=== PATIENT | female | born 1990 | race Caucasian/White ===

== ENCOUNTER 2020-05-03 10:33 | Inpatient (IN) ==
[2020-05-03] MEDS ORDERED: OXYTOCIN/0.9 % SODIUM CHLORIDE 30 UNITS/500 ML BAG IV ONE ×2 (10:55→15:59)
[2020-05-03] MEDS ORDERED: LIDOCAINE HCL 50 ML VIAL ONE (10:55)
[2020-05-03] MEDS ORDERED: LIDOCAINE HCL 50 ML VIAL PERI PRN (10:55)
[2020-05-03] MEDS ORDERED: ONDANSETRON 4 MG TAB.RAPDIS PO PRN (10:55)
[2020-05-03] MEDS: RINGER'S SOLUTION,LACTATED 1,000 ML IV ONE ×2 (11:15→12:04)
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
[2020-05-03] MEDS ORDERED: ONDANSETRON HCL/PF 2 MG/ML VIAL IV PRN (11:37)
[2020-05-03] MEDS ORDERED: BUPIVACAINE HCL/0.9 % NACL/PF 250 ML EP PRN (11:37)
[2020-05-03] MEDS ORDERED: NALOXONE HCL 1 MG/1 ML SYRG IV PRN (11:37)
[2020-05-03 11:40] LABS: Cocaine Ur Negative (NEGATIVE); Urine Barbiturate Negative (NEGATIVE); Urine Benzodiazepines Negative (NEGATIVE); Urine Opiates Negative (NEGATIVE); Urine PCP Negative (NEGATIVE)
[2020-05-03 11:41] LABS: Urine THC Positive (NEGATIVE)
[2020-05-03] MEDS ORDERED: fentaNYL CITRATE/PF 50 MCG/ML AMPUL IT SCH (11:45)
--- NOTE | 2020-05-03 12:17 | PN ---
Progess Note - Interim Date: 05/03/20 Time: 12:14 Narrative: 05/03/20 12:14 Patient desires epidural Vital signs stable. FHT: 130 baseline, good cjqg-[id number] variability 1 prolonged deceleration. Contractions q 2-3 min Cervix: 5-6/90/0, AROM at 1117-clear fluid, FSE placed Impression: Intrauterine at 38 3/7 weeks in labor Plan: Continue present plan. Anesthesia consulted for epidural placement.
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
--- NOTE | 2020-05-03 12:18 | ANES ---
Post Anesthesia Assessment - Vital Signs Vitals: Last Vital Signs Temp 36.7 C 05/03/20 11:08 Pulse 96 05/03/20 11:08 Resp 18 05/03/20 11:08 BP 137/86 05/03/20 11:08 Pulse Ox 100 05/03/20 11:08 Airway Patency: Normal - Mental Status Level Of Consciousness: Awake - Pain Level Pain Score: 2 - N/V Assessment Nausea/Vomiting Presence: None Dehydration:: No
--- NOTE | 2020-05-03 12:18 | ANES ---
Post Anesthesia Discharge - Transfer of Care Transfer of Care handoff given to nurse: Yes - Anesthesia Post Op Note Anesthesia Post Op Note: Care transferred to OB RN
--- NOTE | 2020-05-03 12:19 | ANES ---
Anesthesia Procedure Note Procedure Note: ANESTHESIA PROCEDURE NOTE Date of Procedure: 05/03/2020 Time of procedure: 1205. Performed by: Wan Benites CRNA Belt Maker Helper: None. Preprocedure diagnosis: Active labor. Post procedure diagnosis: Same. Procedure: Insertion of labor epidural. Indications: The patient is a 29-year-old prima para female in active labor requesting labor epidural for pain management. Findings: See below. Details of the procedure: The patient was placed in a sitting position. Back was prepped with DuraPrep. Patient was then draped in a sterile fashion. Lidocaine 1% was infiltrated to the skin and subcutaneous tissues at the level of the L3 4 interspace. The epidural space was identified using a 18-gauge Tuohy needle with czyt-et-[id number] technique. 20 mcg fentanyl was given intrathecally using a 27 ga. spinal needle. Epidural catheter was inserted without difficulty. Negative test dose was elicited using 5 mL of 1.5% preservative-free lidocaine plus epinephrine 1 200,000. The epidural catheter was then taped and secured in place. EBL: Minimal. Fluids: N/A. Specimen: N/A. Post procedure condition: The patient tolerated the procedure well. No complications were noted. Thank you for this consultation. Del Toro CRNA
--- NOTE | 2020-05-03 15:57 | OR ---
Operative Report - Dictated Report Narrative: Spontaneous vaginal delivery of vigorously crying viable female at 1524 on 05/03/2020 with Apgars 9 and 9, weighing 2604 g in JS position with tight nuchal cord x1. Cord clamping delayed approximately 1 minute Placenta delivered complete, intact, with three vessel cord Estimated blood loss: 100 mL Anesthesia: Epidural Lacerations: Bilateral periurethral abrasions no repair needed. History for MU History for Definition: * The number of deliveries resulting in a live the patient experienced prior to current hospitalization * The previous delivery of live twins or any live multiple gestation is considered one live event. *If primagravida or nulliparous is documented select zero for the number of previous live births. Live Events: Live Events: 0
[2020-05-03] MEDS ORDERED: SENNOSIDES 8.6 MG TABLET PO PRN (15:59)
[2020-05-03] MEDS ORDERED: BISACODYL 10 MG SUPP.RECT RC PRN (15:59)
[2020-05-03] MEDS ORDERED: BENZOCAINE/MENTHOL 81 SPRAY CAN TP PRN (15:59)
[2020-05-03] MEDS ORDERED: ACETAMINOPHEN 325 MG TABLET PO PRN (15:59)
[2020-05-03] MEDS ORDERED: HYDROCORTISONE 30 APPL TUBE TP PRN (15:59)
[2020-05-03] MEDS ORDERED: NON-FORMULARY 1 DOSE DOSE (Breast Pump device) TP SCH (16:00)
[2020-05-03] MEDS: GLYCERIN/WITCH HAZEL LEAF 40 APPL BOX TP PRN (17:25)
[2020-05-03] MEDS: oxyCODONE HCL/ACETAMINOPHEN 1 TAB TABLET PO PRN ×2 (19:15→23:22)
[2020-05-03] MEDS: DOCUSATE SODIUM 100 MG CAPSULE PO SCH (21:27)
[2020-05-04] MEDS: oxyCODONE HCL/ACETAMINOPHEN 1 TAB TABLET PO PRN ×5 (02:43→22:30)
[2020-05-04] MEDS: DOCUSATE SODIUM 100 MG CAPSULE PO SCH ×3 (07:48→20:59)
[2020-05-04] MEDS: MULTIVITAMIN/IRON/FOLIC ACID 1 TAB TABLET PO SCH ×2 (07:49→08:14)
[2020-05-04] MEDS: IBUPROFEN 800 MG TABLET PO PRN ×2 (12:24→18:46)
--- NOTE | 2020-05-04 14:54 | PN ---
Subjective - Date and Time Seen Date: 05/04/20 Time: 14:15 Objective - Vitals Vitals: Last Vital Signs Temp 36.8 C 05/04/20 14:30 Pulse 62 05/04/20 14:30 Resp 18 05/04/20 14:30 BP 120/76 05/04/20 14:30 Pulse Ox 100 05/04/20 14:30 Patient denies complaints. She was pretty upset last night when told she could not go out to smoke, but seems to be okay now. Lochia wnl abdomen - soft, nontender Uterus -firm, at umbilicus - 1 No calf tenderness Impression: day #1 - s/p spontaneous vaginal delivery. Urine drug screen positive for THC. Baby's drug screen positive as well. The baby has an elevated CRP and on antibiotics awaiting blood cultures. Plan: Continue routine care. Anticipate mother will need to "board for baby" till baby'a blood cultures are back. Cauti Physician Documentation - Urinary Catheter Management Urethral (Kelley) Date of Insertion: 05/03/20 Time of Insertion: 12:37 Date of Removal: 05/03/20 Time of Removal: 15:00 Assessment/Plan - Problems/Diagnosis (1) Labor established Problem: Acute (2) Current smoker Problem: Chronic (3) Depression Problem: Inactive Qualifiers: Depression Type: unspecified Qualified Code(s): F32.9 - Major depressive disorder, single episode, unspecified (4) Anxiety Problem: Inactive (5) Marijuana use Problem: Inactive
--- NOTE | 2020-05-04 15:03 | PN ---
Progess Note - Interim Date: 05/04/20 Time: 15:00 Narrative: 05/04/20 15:00 Patient had an elevated temperature of 41.1 C 1 hour after delivery. Her blood pressure and pulse were also elevated at this time. Within 1 hour all vitals were back to within normal limits. Patient has not had an elevated temperature since that time. The supervisor post wave and infectious disease nurse were contacted. A Covid test was performed and results were negative. We will continue to monitor patient closely for signs/symptoms of infection.
[2020-05-05] MEDS: MULTIVITAMIN/IRON/FOLIC ACID 1 TAB TABLET PO SCH ×2 (07:43→08:03)
[2020-05-05] MEDS: GLYCERIN/WITCH HAZEL LEAF 40 APPL BOX TP PRN (07:43)
[2020-05-05] MEDS: DOCUSATE SODIUM 100 MG CAPSULE PO SCH ×3 (07:43→20:54)
[2020-05-05] MEDS: IBUPROFEN 800 MG TABLET PO PRN ×3 (07:43→23:53)
[2020-05-05] MEDS: oxyCODONE HCL/ACETAMINOPHEN 1 TAB TABLET PO PRN ×4 (07:43→23:53)
--- NOTE | 2020-05-05 09:02 | PN ---
Subjective - Date and Time Seen Date: 05/05/20 Time: 09:00 Objective - Vitals Vitals: Last Vital Signs Temp 37.1 C 05/05/20 07:45 Pulse 70 05/05/20 07:45 Resp 16 05/05/20 07:45 BP 124/75 05/05/20 07:45 Pulse Ox 100 05/05/20 07:45 Patient denies complaints. Breast-feeding well. Lochia wnl abdomen - soft, nontender Uterus -firm, at umbilicus - 2 No calf tenderness Impression: day #2 - s/p spontaneous vaginal delivery. Smoker. Marijuana use. Baby still on IV antibiotics awaiting blood culture results which should be available tomorrow morning. Plan: Routine discharge instructions. Counseled on risks of smoking, including increased risk for SIDS. Board for baby. Cauti Physician Documentation - Urinary Catheter Management Urethral (Kelley) Date of Insertion: 05/03/20 Time of Insertion: 12:37 Date of Removal: 05/03/20 Time of Removal: 15:00 Assessment/Plan - Problems/Diagnosis (1) Labor established Problem: Acute (2) Current smoker Problem: Chronic (3) Depression Problem: Inactive Qualifiers: Depression Type: unspecified Qualified Code(s): F32.9 - Major depressive disorder, single episode, unspecified (4) Anxiety Problem: Inactive (5) Marijuana use Problem: Chronic
--- NOTE | 2020-05-05 09:03 | DS ---
OB Discharge Summary (1) Labor established Status: Acute (2) Current smoker Status: Chronic (3) Marijuana use Status: Chronic (4) Anxiety Status: Inactive (5) Depression Status: Inactive Qualifiers: Depression Type: unspecified Qualified Code(s): F32.9 - Major depressive disorder, single episode, unspecified Delivery Date: 05/03/20 Delivery Time: 15:24 :: 1 Para:: 1 Gestational weeks:: 38 Gestational days:: 3 Intrapartum Procedures: Spontaneous Vaginal Delivery, Anesthesia - Epidural Procedures: None Discharge Diagnosis: Term -Delivered, Rubella Immune - Discharge Information Date of Discharge: 05/05/20 Hospital Course: 30-year-old 1 now para 1 admitted at 38 3/7 weeks in labor. Her her labor and delivery were uncomplicated. Immediately patient had a temperature spike to 41.1 with normal temperatures since that one spike. Covid testing was negative and clinical exam was unremarkable for infection. The baby was empirically placed on IV antibiotics after obtaining blood cultures and will continue on IV antibiotics until results are available. Mother had a very aggressive interaction with the nursing staff related to her inability to leave her room and smoke, but this is since resolved and she has been tolerating this well. She will be discharged today and board for baby till cultures are available in the morning. Routine follow-up instructions given. Discharge Location: Home Disposition: Home self-care Condition: Good Activity on Discharge:: Activity as tolerated, Pelvic Rest Discharge Diet: General/regular food Complete Home Medications List: Complete Home Medication List: acetaminophen 325 mg capsule 325 mg PO Q6H PRN 03/18/20 prenat.vits,champ,kxo-uigt-tcoai 1 tab PO DAILY 03/18/20 magnesium 250 mg tablet 500 mg PO DAILY tab 04/15/20 breast pump See Rx Instructions .ROUTE .MEDSUPPLY #1 ea 04/29/20 - Plan Discharge to:: Home Follow up in office in:: 3-4 weeks - Information Weight (Grams): 2,604 Infant Sex: Female Score 1 min: 9 Score 5 min: 9 Infant Complications: Other Other Complications: nuchal cord x1, emperically on IV antibiotics due to maternal fever and elevated CRP.
[2020-05-05 21:35] VITALS: BP 133/84
== END 2020-05-05 23:55 | disposition home or self-care (01) | DRG 806 ==
LOC: OBCLINIC 10:33 → OB 10:51
PROVIDERS: ADMIT Obstetrics & Gynecology; ATTEND Obstetrics & Gynecology